=== PATIENT | female | born 1975 | race Caucasian/White ===

== ENCOUNTER 2021-11-22 20:23 | Emergency (ER) | payer SELFPAY ==
[~2021-11-22] VITALS: Ht 165.1 cm; Wt 53.5 kg
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
--- NOTE | 2021-11-22 21:28 | NUR ---
DR. LOUIS BOO AT PT'S BEDSIDE FOR EVAL
--- NOTE | 2021-11-22 21:42 | NUR ---
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
[2021-11-22] MEDS ORDERED: IBUP-1955 PO (23:28)
[2021-11-22] MEDS ORDERED: IBUPROFEN 600 MG TABLET PO ONE (23:30)
[2021-11-22] MEDS ORDERED: IBUPROFEN 600 MG TABLET ONE (23:31)
--- NOTE | 2021-11-22 23:33 | NUR ---
ADRI[place] WRAP APPLIED TO PT'S RIGHT KNEE AND GIVEN CRUTCHES
--- NOTE | 2021-11-22 23:39 | NUR ---
PT DEPARTED VIA CRUCHES
[2021-11-22 23:56] VITALS: BP 109/86
== END 2021-11-22 23:59 | disposition home or self-care (01) ==
LOC: ER 20:25
DX: S83.91XA Sprain of unspecified site of right knee, initial encounter (principal); M25.551 Pain in right hip; Z60.2 Problems related to living alone; V23.49XA Other motorcycle driver injured in collision with car, pick-up truck or van in traffic accident, initial encounter; Y93.89 Activity, other specified; Y92.413 State road as the place of occurrence of the external cause; Y99.8 Other external cause status
CPT/HCPCS: 73502; 73564-TC

== ENCOUNTER 2022-03-02 14:55 | Emergency (ER) | payer OTHER ==
[~2022-03-02] VITALS: Ht 165.1 cm; Wt 52.6 kg
[~2022-03-02 14:55] MED LIST: IBUP-1955 PO
--- NOTE | 2022-03-02 15:10 | NUR ---
RECEIVED PT 46 YRS FEMALE WALKING IN FROM HOMEC/O NAUSEA AND VOMITING ABDOMIN SOFT NONE TENDER TO TOUCH
--- NOTE | 2022-03-02 15:45 | NUR ---
SEEN BY DR. ESCOBEDO
--- NOTE | 2022-03-02 16:20 | NUR ---
INSERTED ANGOCATHETER G 20 ON RT AC IVF INFUSED AND PATENT PEPECED AND ZOFRAN GIVEN
[2022-03-02] MEDS ORDERED: ONDANSETRON HCL/PF 4 MG/2 ML VIAL ONE (16:21)
[2022-03-02] MEDS ORDERED: FAMOTIDINE/PF INJ 20 MG/2 ML VIAL IV ONE ×2 (16:22→16:30)
[2022-03-02] MEDS ORDERED: ONDANSETRON HCL/PF 4 MG/2 ML VIAL IVP ONE (16:30)
[2022-03-02] MEDS ORDERED: IV NS 0.9% 1,000 ML BAG IV ONE (16:30)
--- NOTE | 2022-03-02 16:35 | NUR ---
BLOOD DROW BY LAB TACH
[2022-03-02 16:41] LABS: BASOPHILS % (AUTO) 0.3 % (0.0-2.0); EOSINOPHILS % (AUTO) 0.2 % (0.0-6.0); HEMATOCRIT 32 % (33-45); HEMOGLOBIN 9.8 g/dL (11.5-14.8); LYMPHOCYTES # (AUTO) 1.4 K/uL (0.8-4.8); LYMPHOCYTES % (AUTO) 20.7 % (20.0-44.0); MEAN CORPUSCULAR HGB CONC 31 g/dl (31.0-36.0); MEAN CORPUSCULAR VOLUME 80 fL (82-100); MONOCYTES # (AUTO) 0.3 K/uL (0.1-1.30); NEUTROPHILS % (AUTO) 74.8 % (43.0-81.0); PLATELET COUNT (AUTO) 356 K/uL (150-450); RED BLOOD CELL COUNT(AUTO) 4.01 MIL/uL (4.0-5.2); WHITE BLOOD COUNT (AUTO) 6.7 K/uL (4.3-11.0)
[2022-03-02 16:56] LABS: ALBUMIN 3.9 g/dL (3.4-5.0); BILIRUBIN,DIRECT 0.1 mg/dL (0.0-0.2); BILIRUBIN,TOTAL 0.3 mg/dL (0.2-1.0); CALCIUM, SERUM 8.4 mg/dL (8.5-10.1); CREATININE 0.9 mg/dL (0.6-1.3); POTASSIUM 4.3 mmol/L (3.5-5.1); TOTAL PROTEIN, SERUM 7.7 g/dL (6.4-8.2)
--- NOTE | 2022-03-02 17:00 | NUR ---
UA SENT TO LAB YELLOW COUDY COLOR
[2022-03-02 17:46] LABS: BILIRUBIN,URINE NEGATIVE (NEGATIVE); COLOR,URINE YELLOW (YELLOW); LEUKOCYTE ESTERASE ,URINE NEGATIVE (NEGATIVE); NITRITE, URINE NEGATIVE (NEGATIVE); PH,URINE 5.5 (5.0-8.0); PROTEIN,URINE NEGATIVE (NEGATIVE); UGLUCOSE NEGATIVE (NEGATIVE); UROBILINOGEN,URINE 0.2 EU/dL (0.2)
--- NOTE | 2022-03-02 17:50 | NUR ---
RESTING AND COMFORTABLE AT THIS TIME
[2022-03-02] MEDS ORDERED: ONDA4TAB5 PO (18:16)
--- NOTE | 2022-03-02 18:40 | NUR ---
Patient discharged to home in stable condition. Written and verbal after care instructions given. Patient verbalizes understanding of instruction.
[2022-03-02 18:41] VITALS: BP 111/75
--- NOTE | 2022-03-02 19:20 | NUR ---
IV removed. Catheter intact and site benign. Pressure and 4x4 applied to site. No bleeding noted.
[2022-03-02 19:42] LABS: WBC,URINE NONE SEEN /HPF (0-3)
[2022-03-02 19:43] LABS: BACTERIA,URINE Few /HPF (None Seen); SQUAMOUS EPITHELIAL CELL,UR Few /HPF (None Seen)
== END 2022-03-02 19:24 | disposition home or self-care (01) ==
LOC: ER 15:03
DX: R11.2 Nausea with vomiting, unspecified (principal); R10.32 Left lower quadrant pain; Z60.2 Problems related to living alone; Z79.1 Long term (current) use of non-steroidal anti-inflammatories (NSAID)
CPT/HCPCS: 99285; 74176; 96374; 96361; 96375; 85025; 80048; 87086; 83690; 80076; 81001; 36415; 84702; J3490; J2405; J7030

== ENCOUNTER 2022-12-01 23:57 | Emergency (ER) | payer OTHER ==
[~2022-12-01] VITALS: Ht 165.1 cm; Wt 47.6 kg
[~2022-12-01 23:57] MED LIST changes: +ONDA4TAB5 PO
[2022-12-02 00:41] LABS: BASOPHILS # (AUTO) 0.2 K/uL (0.0-0.2); BASOPHILS % (AUTO) 1.9 % (0.0-2.0); EOSINOPHILS # (AUTO) 0.2 K/uL (0.0-0.7); EOSINOPHILS % (AUTO) 2.6 % (0.0-6.0); HEMATOCRIT 38 % (33-45); HEMOGLOBIN 11.9 g/dL (11.5-14.8); LYMPHOCYTES # (AUTO) 3.5 K/uL (0.8-4.8); LYMPHOCYTES % (AUTO) 40.7 % (20.0-44.0); MEAN CORPUSCULAR HEMOGLOBIN 26 PG (26.0-33.0); MEAN CORPUSCULAR HGB CONC 31 g/dl (31.0-36.0); MEAN CORPUSCULAR VOLUME 82 fL (82-100); MONOCYTES # (AUTO) 0.4 K/uL (0.1-1.30); NEUTROPHILS # (AUTO) 4.2 K/uL (1.8-8.9); NEUTROPHILS % (AUTO) 49.8 % (43.0-81.0); PLATELET COUNT (AUTO) 534 K/uL (150-450); RED BLOOD CELL COUNT(AUTO) 4.68 MIL/uL (4.0-5.2); RED CELL DISTRIBUTION WIDTH 19.5 % (11.5-15.0); WHITE BLOOD COUNT (AUTO) 8.5 K/uL (4.3-11.0)
[2022-12-02 01:08] LABS: ALANINE AMINOTRANSFERASE 23 U/L (12-78); ALBUMIN 1.6 g/dL (3.4-5.0); ALKALINE PHOSPHATASE 83 U/L (46-116); ASPARTATE AMINOTRANSFERASE 17 U/L (15-37); CALCIUM, SERUM 8.5 mg/dL (8.5-10.1); CARBON DIOXIDE 28 mmol/L (21-32); CHLORIDE 104 mmol/L (98-107); CREATININE 0.8 mg/dL (0.6-1.3); GLUCOSE 75 mg/dL (74-106); SODIUM SERUM 137 mmol/L (136-145); TOTAL PROTEIN, SERUM 6.7 g/dL (6.4-8.2); UREA NITROGEN, BLOOD 11 mg/dL (7-18)
[2022-12-02 01:10] LABS: APPEARANCE,URINE CLOUDY (CLEAR); BILIRUBIN,URINE NEGATIVE (NEGATIVE); BLOOD, URINE NEGATIVE Ery/uL (NEGATIVE); COLOR,URINE YELLOW (YELLOW); KETONES,URINE NEGATIVE (NEGATIVE); LEUKOCYTE ESTERASE ,URINE NEGATIVE (NEGATIVE); NITRITE, URINE NEGATIVE (NEGATIVE); PH,URINE 6.5 (5.0-8.0); PROTEIN,URINE 3+ mg/dl (NEGATIVE); UGLUCOSE NEGATIVE (NEGATIVE); UROBILINOGEN,URINE 0.2 EU/dL (0.2)
[2022-12-02 01:17] LABS: ACETAMINOPHEN 0 ug/ml (10-30); ALCOHOL, BLOOD < 3 mg/dL (0-10)
[2022-12-02 01:25] LABS: AMPHETAMINE, URINE NEGATIVE (NEGATIVE); BARBITURATE, URINE NEGATIVE (NEGATIVE); BENZODIAZEPINE, URINE NEGATIVE (NEGATIVE); COCCAINE, URINE NEGATIVE (NEGATIVE); OPIATE, URINE NEGATIVE (NEGATIVE); PHENCYCLIDINE SCREEN,URINE NEGATIVE (NEGATIVE)
[2022-12-02 01:26] LABS: CANNABINOID, URINE POSITIVE (NEGATIVE)
[2022-12-02 02:37] LABS: RBC,URINE 0-2 /HPF (0-2); WBC,URINE 0-2 /HPF (0-3)
[2022-12-02 02:38] LABS: ADD URINE CULTURE NO; BACTERIA,URINE 1+ /HPF (None Seen); MUCUS,URINE Moderate /LPF (None Seen)
[2022-12-02 11:40] VITALS: BP 119/82; TEMP 97.8; O2SAT 98
== END 2022-12-02 13:15 | disposition home or self-care (01) ==
LOC: ER 12-02 00:04
DX: Z63.79 Other stressful life events affecting family and household (principal); Z79.899 Other long term (current) drug therapy; Z60.2 Problems related to living alone
CPT/HCPCS: 36415; 80048-TC; 80076-TC; 81001; 85025-TC; G0480